=== PATIENT | male | born 1960 | race Two or more races ===

== ENCOUNTER 2017-05-19 18:26 | Emergency (ER) | payer SELFPAY ==
[~2017-05-19] VITALS: Ht 175.3 cm; Wt 111.0 kg
[2017-05-19 19:39] LABS: BASOPHILS % 0.8 % (0.0-2.0); EOSINOPHILS % 1.9 % (0.0-5.0); HEMATOCRIT. 45.5 % (42.0-52.0); HEMOGLOBIN. 15.5 g/dL (14.0-18.0); LYMPHOCYTES % 28.6 % (20.0-50.0); MEAN CORPUSCULAR VOLUME 88.2 fL (80.0-94.0); MEAN PLATELET VOLUME 7.7 fl (7.4-10.4); MONOCYTES % 8.5 % (2.0-8.0); NEUTROPHILS % 60.2 % (40.0-76.0); PLATELET 321 x1000/uL (130-400); RED BLOOD CELL COUNT 5.16 mill/uL (4.7-6.1); RED CELL DISTRIBUTION WIDTH 14.2 % (11.6-14.6)
[2017-05-19 19:48] LABS: PROTHROMBIN TIME 10.9 sec
[2017-05-19 19:52] LABS: CARBON DIOXIDE 27 mEq/L (21-32); CHLORIDE 109 mEq/L (98-107)
[2017-05-19] MEDS ORDERED: CLONIDINE 0.1MG TABLET PO ONE (20:45)
[2017-05-19] MEDS ORDERED: LABETALOL 5MG/ML SYR 20 MG/4 ML SYRINGE IV ONE (21:45)
[2017-05-20 00:27] VITALS: BP 180/110
== END 2017-05-20 00:30 | disposition home or self-care (01) ==
LOC: ER 18:41
DX: I10 Essential (primary) hypertension (principal); N28.9 Disorder of kidney and ureter, unspecified; Z91.14 Patient's other noncompliance with medication regimen
CPT/HCPCS: 36415; 70450; 80053; 85025; 85610; 93005; 96374; 99285; J3490; Z7610

== ENCOUNTER 2019-01-08 09:15 | Inpatient (IN) | payer OTHER, MEDICAID ==
[~2019-01-08] VITALS: Ht 175.3 cm; Wt 111.6 kg
[2019-01-08] MEDS ORDERED: LABETALOL 5MG/ML SYR 20 MG/4 ML SYRINGE IV ONE (10:15)
[2019-01-08 10:36] LABS: HEMATOCRIT. 47.6 % (42.0-52.0); HEMOGLOBIN. 16.2 g/dL (14.0-18.0); MEAN CORPUSCULAR HEMOGLOBIN 30.5 pg (28.0-32.0); MEAN CORPUSCULAR VOLUME 89.7 fL (80.0-94.0); MEAN PLATELET VOLUME 8.5 fl (7.4-10.4); PLATELET 248 x1000/uL (130-400); RED BLOOD CELL COUNT 5.31 mill/uL (4.7-6.1)
[2019-01-08 10:44] LABS: CHLORIDE 108 mEq/L (98-107)
[2019-01-08] MEDS ORDERED: LABETALOL HCL 20MG/4ML CARPUJECT IV ONE (10:45)
[2019-01-08] MEDS ORDERED: ASPIRIN 325MG EC TABLET PO ONE (11:15)
[2019-01-08 11:24] LABS: PLATELET ESTIMATE NORMAL
[2019-01-08] MEDS ORDERED: DIPHENHYDRAMINE 50MG/ML VIAL IV PRN (12:00)
[2019-01-08] MEDS ORDERED: IPRATROPIUM/ALBUTEROL 0.5-3(2.5)MG/3ML NEB INH PRN (12:00)
[2019-01-08] MEDS ORDERED: ACETAMINOPHEN 325MG TABLET PO PRN (12:00)
[2019-01-08] MEDS ORDERED: ONDANSETRON HCL 4MG/2ML INJ IV PRN (12:00)
[2019-01-08] MEDS ORDERED: MAGNESIUM/ALUMINUM HYDROXIDE/SIMETHICONE 30ML UDC PO PRN (12:00)
[2019-01-08] MEDS ORDERED: NA PHOS,M-B/NA PHOS,DI-BA ENEMA 118ML PR PRN (12:00)
[2019-01-08] MEDS ORDERED: DOCUSATE SODIUM 100MG CAPSULE PO PRN (12:00)
[2019-01-08] MEDS ORDERED: HYDROCODONE/ACETAMINOPHEN 5/325MG TABLET PO PRN (12:00)
[2019-01-08] MEDS ORDERED: MORPHINE SULFATE 4 MG/ML CPJ (NOT FOR IM USE) IV PRN (12:00)
[2019-01-08] MEDS ORDERED: LISINOPRIL 5MG TABLET PO NR (14:30)
[2019-01-08] MEDS ORDERED: CLONIDINE 0.1MG TABLET PO NR (14:30)
[2019-01-08] MEDS ORDERED: ENOXAPARIN 30MG/0.3ML SYR SUBCUT NR (14:30)
[2019-01-08 15:03] LABS: CHLORIDE 106 mEq/L (98-107)
[2019-01-08] MEDS: CLONIDINE 0.1MG TABLET PO PRN (16:00)
[2019-01-08 19:30] VITALS: BP 170/100
[2019-01-08 20:00] VITALS: BP 175/114
[2019-01-08] MEDS ORDERED: HYDROXYZINE 25MG TABLET PO PRN (20:45)
[2019-01-08] MEDS ORDERED: HYDRALAZINE 20MG/ML VIAL IV PRN (20:45)
[2019-01-08] MEDS: ENOXAPARIN 30MG/0.3ML SYR SUBCUT SCH (21:07)
[2019-01-08] MEDS: NITROGLYCERIN OINT 1GM/INCH UDPKT TD SCH (21:07)
[2019-01-08] MEDS: CLONIDINE 0.1MG TABLET PO SCH (21:07)
[2019-01-09] VITALS: BP 130/76
[2019-01-09 04:00] VITALS: BP 125/79
[2019-01-09] MEDS: NITROGLYCERIN OINT 1GM/INCH UDPKT TD SCH ×3 (05:59→21:08)
[2019-01-09] MEDS: CLONIDINE 0.1MG TABLET PO SCH ×3 (05:59→21:07)
[2019-01-09 06:18] LABS: HEMATOCRIT. 43.9 % (42.0-52.0); HEMOGLOBIN. 14.7 g/dL (14.0-18.0); MEAN CORPUSCULAR HEMOGLOBIN 30.2 pg (28.0-32.0); MEAN CORPUSCULAR VOLUME 90.4 fL (80.0-94.0); MEAN PLATELET VOLUME 8.5 fl (7.4-10.4); PLATELET 253 x1000/uL (130-400); RED BLOOD CELL COUNT 4.86 mill/uL (4.7-6.1); RED CELL DISTRIBUTION WIDTH 14.5 % (11.6-14.6)
[2019-01-09 06:23] LABS: CHLORIDE 107 mEq/L (98-107)
[2019-01-09 06:38] LABS: LDL CHOLESTEROL 146 mg/dL (5-100)
[2019-01-09 06:40] LABS: HDL CHOLESTEROL 31 mg/dL (40-59); T4 FREE 0.93 ng/dL (0.76-1.46)
[2019-01-09 08:00] VITALS: BP 161/95
[2019-01-09] MEDS ORDERED: REGADENOSON 0.4 MG/5 ML IV ONE (10:00)
[2019-01-09] MEDS: ASPIRIN 81MG EC TABLET PO SCH (10:01)
[2019-01-09] MEDS: LISINOPRIL 5MG TABLET PO SCH (10:01)
[2019-01-09] MEDS: ENOXAPARIN 30MG/0.3ML SYR SUBCUT SCH ×2 (10:02→21:08)
[2019-01-09] MEDS: GUAIFENESIN 200MG/10ML SUGAR FREE UDC PO PRN (10:39)
[2019-01-09 12:00] VITALS: BP 131/84
[2019-01-09 16:16] VITALS: BP 144/92
[2019-01-09 16:55] LABS: PLATELET ESTIMATE NORMAL
[2019-01-09 20:00] VITALS: BP 142/89
[2019-01-09] MEDS: LORAZEPAM 2MG/ML CPJ IV PRN (21:17)
[2019-01-10 00:30] VITALS: BP 125/75
[2019-01-10 04:00] VITALS: BP 129/80
[2019-01-10 08:00] VITALS: BP 165/109
[2019-01-10] MEDS: LISINOPRIL 5MG TABLET PO SCH (08:34)
[2019-01-10] MEDS: CLONIDINE 0.1MG TABLET PO SCH ×3 (08:34→22:31)
[2019-01-10] MEDS: ASPIRIN 81MG EC TABLET PO SCH (08:35)
[2019-01-10] MEDS: ENOXAPARIN 30MG/0.3ML SYR SUBCUT SCH ×2 (08:39→22:32)
[2019-01-10 12:15] VITALS: BP 160/96
[2019-01-10] MEDS: NITROGLYCERIN OINT 1GM/INCH UDPKT TD SCH ×2 (14:12→22:00)
[2019-01-10] MEDS: GUAIFENESIN 200MG/10ML SUGAR FREE UDC PO PRN (14:16)
[2019-01-10 16:00] VITALS: BP 156/96
[2019-01-10 20:00] VITALS: BP 168/98
[2019-01-10] MEDS: LORAZEPAM 2MG/ML CPJ IV PRN (22:32)
[2019-01-11 00:13] VITALS: BP 145/99
[2019-01-11 04:00] VITALS: BP 137/84
[2019-01-11 04:30] VITALS: BP 130/82
[2019-01-11] MEDS: NITROGLYCERIN OINT 1GM/INCH UDPKT TD SCH ×2 (06:00→13:39)
[2019-01-11] MEDS: CLONIDINE 0.1MG TABLET PO SCH ×2 (06:26→13:39)
[2019-01-11 08:00] VITALS: BP 158/86
[2019-01-11] MEDS: CLONIDINE 0.1MG TABLET PO PRN (08:52)
[2019-01-11] MEDS: LISINOPRIL 5MG TABLET PO SCH (08:53)
[2019-01-11] MEDS ORDERED: REGADENOSON 0.4 MG/5 ML IV ONE (09:40)
[2019-01-11] MEDS: ASPIRIN 81MG EC TABLET PO SCH (11:45)
[2019-01-11] MEDS: ENOXAPARIN 30MG/0.3ML SYR SUBCUT SCH (11:52)
[2019-01-11 12:00] VITALS: BP 146/82
[2019-01-11 13:48] VITALS: BP 148/88
== END 2019-01-11 14:55 | disposition home or self-care (01) | DRG 190 ==
LOC: ER 09:15 → 7WST 11:34 → EDBEDREQ 11:40 → ENRESERV 17:42
PROVIDERS: ADMIT Internal Medicine; ATTEND Internal Medicine
DX: I21.4 Non-ST elevation (NSTEMI) myocardial infarction (principal); I11.0 Hypertensive heart disease with heart failure; I50.9 Heart failure, unspecified; E66.09 Other obesity due to excess calories; I25.10 Atherosclerotic heart disease of native coronary artery without angina pectoris; N28.9 Disorder of kidney and ureter, unspecified; R63.4 Abnormal weight loss; G47.33 Obstructive sleep apnea (adult) (pediatric); E78.5 Hyperlipidemia, unspecified; I25.2 Old myocardial infarction; Z68.36 Body mass index [BMI] 36.0-36.9, adult
CPT/HCPCS: 36415; 71045; 78452; 80048; 80061; 83880; 84439; 84443; 84484; 93005; 93306; 96372; 96374; 96375; 99285; A9500; C1893; J1650; J2060; J2785; J3490

== ENCOUNTER 2019-01-21 05:33 | Inpatient (IN) | payer OTHER, MEDICAID ==
[~2019-01-21] VITALS: Ht 175.3 cm; Wt 116.6 kg
[2019-01-21 06:46] LABS: CHLORIDE 105 mEq/L (98-107)
[2019-01-21 06:55] LABS: BASOPHILS % 0.7 % (0.0-2.0); EOSINOPHILS % 1.2 % (0.0-5.0); HEMATOCRIT. 43.2 % (42.0-52.0); HEMOGLOBIN. 14.8 g/dL (14.0-18.0); LYMPHOCYTES % 18.5 % (20.0-50.0); MEAN CORPUSCULAR HEMOGLOBIN 30.7 pg (28.0-32.0); MEAN CORPUSCULAR VOLUME 89.7 fL (80.0-94.0); MEAN PLATELET VOLUME 8.4 fl (7.4-10.4); MONOCYTES % 7.2 % (2.0-8.0); NEUTROPHILS % 72.4 % (40.0-76.0); PLATELET 333 x1000/uL (130-400); RED BLOOD CELL COUNT 4.81 mill/uL (4.7-6.1); RED CELL DISTRIBUTION WIDTH 13.7 % (11.6-14.6)
[2019-01-21] MEDS ORDERED: ENALAPRIL 2.5MG/2ML VIAL 2ML IV ONE (08:00)
[2019-01-21] MEDS ORDERED: FUROSEMIDE 40MG/4ML VIAL IVP ONE (08:00)
[2019-01-21] MEDS ORDERED: SODIUM CHLORIDE 0.45% 1,000 ML IV ONE (09:15)
[2019-01-21] MEDS ORDERED: IODIXANOL 320MG/ML 100 ML BOTTLE IV ONE (09:34)
[2019-01-21] MEDS ORDERED: LIDOCAINE HCL 1% 20ML VIAL (Pyxis) INJ ONE (09:34)
[2019-01-21] MEDS ORDERED: GUAIFENESIN 200MG/10ML SUGAR FREE UDC PO PRN (10:00)
[2019-01-21] MEDS ORDERED: IPRATROPIUM/ALBUTEROL 0.5-3(2.5)MG/3ML NEB INH PRN (10:00)
[2019-01-21] MEDS ORDERED: ONDANSETRON HCL 4MG/2ML INJ IV PRN (10:00)
[2019-01-21] MEDS ORDERED: NA PHOS,M-B/NA PHOS,DI-BA ENEMA 118ML PR PRN (10:00)
[2019-01-21] MEDS ORDERED: DOCUSATE SODIUM 100MG CAPSULE PO PRN (10:00)
[2019-01-21] MEDS ORDERED: DIPHENHYDRAMINE 50MG/ML VIAL IV PRN (10:00)
[2019-01-21] MEDS ORDERED: MORPHINE SULFATE 4 MG/ML CPJ (NOT FOR IM USE) IV PRN (10:00)
[2019-01-21] MEDS ORDERED: LORAZEPAM 2MG/ML CPJ IV PRN (10:00)
[2019-01-21] MEDS ORDERED: ACETAMINOPHEN 325MG TABLET PO PRN (10:00)
[2019-01-21] MEDS ORDERED: MAGNESIUM/ALUMINUM HYDROXIDE/SIMETHICONE 30ML UDC PO PRN (10:00)
[2019-01-21] MEDS ORDERED: FENTANYL CITRATE/PF 50MCG/ML 2ML VIAL ONE (10:40)
[2019-01-21] MEDS ORDERED: MIDAZOLAM HCL 2 MG/2 ML VIAL ONE (10:40)
[2019-01-21] MEDS ORDERED: IOHEXOL-300 100 ML BOTTLE ONE (10:57)
[2019-01-21] MEDS ORDERED: ASPIRIN 325MG TABLET ONE (11:07)
[2019-01-21] MEDS ORDERED: CLOPIDOGREL 75MG TABLET ONE (11:07)
[2019-01-21 12:34] VITALS: BP 183/117
[2019-01-21 14:00] VITALS: BP 151/105
[2019-01-21] MEDS: HYDROCODONE/ACETAMINOPHEN 5/325MG TABLET PO PRN ×2 (14:29→20:07)
[2019-01-21] MEDS ORDERED: HEPARIN SODIUM 1,000 UNIT/1ML VIAL IV ONE (14:36)
[2019-01-21] MEDS ORDERED: NITROGLYCERIN 50MCG/ML 10ML VIAL (CATH LAB) IV ONE (14:36)
[2019-01-21] MEDS ORDERED: NICARDIPINE 100MCG/ML 10ML VIAL (CATH LAB) IV ONE (14:36)
[2019-01-21] MEDS: ENOXAPARIN 30MG/0.3ML SYR SUBCUT SCH (15:00)
[2019-01-21] MEDS: CLONIDINE 0.1MG TABLET PO PRN (15:18)
[2019-01-21 16:00] VITALS: BP 163/100
[2019-01-21 17:06] LABS: CHLORIDE 107 mEq/L (98-107)
[2019-01-21 18:00] VITALS: BP 150/101
[2019-01-21] MEDS: NITROGLYCERIN OINT 1GM/INCH UDPKT TD SCH (18:00)
[2019-01-21 20:00] VITALS: BP 157/88
[2019-01-21] MEDS ORDERED: METO25TA6 PO (20:03)
[2019-01-21] MEDS ORDERED: FURO20TA4 PO (20:03)
[2019-01-21] MEDS ORDERED: ISOS60TA4 PO (20:03)
[2019-01-21] MEDS ORDERED: LISI-604 PO (20:03)
[2019-01-21] MEDS ORDERED: CLON0.1T PO (20:03)
[2019-01-21] MEDS: METOPROLOL TARTRATE 25MG TABLET PO SCH (20:41)
[2019-01-21] MEDS ORDERED: ZOLPIDEM TARTRATE 5MG TABLET PO PRN (21:00)
[2019-01-21 22:00] VITALS: BP 157/99
[2019-01-22] VITALS (9 sets, daily range): BP systolic 142–172; BP diastolic 87–102
[2019-01-22] MEDS: NITROGLYCERIN OINT 1GM/INCH UDPKT TD SCH ×2 (00:57→09:26)
[2019-01-22] MEDS: CLONIDINE 0.1MG TABLET PO PRN ×2 (01:02→05:39)
[2019-01-22] MEDS: ENOXAPARIN 30MG/0.3ML SYR SUBCUT SCH (05:50)
[2019-01-22] MEDS: METOPROLOL TARTRATE 25MG TABLET PO SCH (07:45)
[2019-01-22 08:59] LABS: BASOPHILS % 0.7 % (0.0-2.0); EOSINOPHILS % 2.3 % (0.0-5.0); HEMATOCRIT. 43.7 % (42.0-52.0); HEMOGLOBIN. 14.6 g/dL (14.0-18.0); LYMPHOCYTES % 19.4 % (20.0-50.0); MEAN CORPUSCULAR HEMOGLOBIN 30.2 pg (28.0-32.0); MEAN CORPUSCULAR VOLUME 90.6 fL (80.0-94.0); MEAN PLATELET VOLUME 8.7 fl (7.4-10.4); MONOCYTES % 8.5 % (2.0-8.0); NEUTROPHILS % 69.1 % (40.0-76.0); PLATELET 305 x1000/uL (130-400); RED BLOOD CELL COUNT 4.83 mill/uL (4.7-6.1)
[2019-01-22] MEDS ORDERED: ASPIRIN 81MG EC TABLET PO SCH ×2 (09:00)
[2019-01-22] MEDS ORDERED: CLOPIDOGREL 75MG TABLET PO SCH (09:00)
[2019-01-22 09:06] LABS: CHLORIDE 108 mEq/L (98-107)
[2019-01-22 09:15] LABS: T4 FREE 1.05 ng/dL (0.76-1.46)
[2019-01-22 09:21] LABS: LDL CHOLESTEROL 77 mg/dL (5-100)
[2019-01-22 09:22] LABS: HDL CHOLESTEROL 36 mg/dL (40-59)
== END 2019-01-22 12:20 | disposition home or self-care (01) | DRG 246 ==
LOC: ER 05:33 → ORIP 07:57 → EDBEDREQ 08:04 → 3WST 14:16
PROVIDERS: ADMIT Internal Medicine; ATTEND Internal Medicine
PROC: 4A023N7 Measurement of Cardiac Sampling and Pressure, Left Heart, Percutaneous Approach (ICD-10-PCS; principal; 2019-01-21)
PROC: 027035Z Dilation of Coronary Artery, One Artery with Two Drug-eluting Intraluminal Devices, Percutaneous Approach (ICD-10-PCS; 2019-01-21)
PROC: B2111ZZ Fluoroscopy of Multiple Coronary Arteries using Low Osmolar Contrast (ICD-10-PCS; 2019-01-21)
PROC: B2151ZZ Fluoroscopy of Left Heart using Low Osmolar Contrast (ICD-10-PCS; 2019-01-21)
DX: I21.4 Non-ST elevation (NSTEMI) myocardial infarction (principal); I50.21 Acute systolic (congestive) heart failure; I25.110 Atherosclerotic heart disease of native coronary artery with unstable angina pectoris; E66.09 Other obesity due to excess calories; E78.00 Pure hypercholesterolemia, unspecified; E78.5 Hyperlipidemia, unspecified; I25.2 Old myocardial infarction; N28.9 Disorder of kidney and ureter, unspecified; Z79.02 Long term (current) use of antithrombotics/antiplatelets; Z79.82 Long term (current) use of aspirin; Z79.899 Other long term (current) drug therapy; G47.33 Obstructive sleep apnea (adult) (pediatric); Z68.38 Body mass index [BMI] 38.0-38.9, adult; I11.0 Hypertensive heart disease with heart failure
CPT/HCPCS: 36415; 71045; 80048; 80061; 83880; 84439; 84443; 84484; 85347; 92928; 93005; 93458; 96372; 99285; C1769; C1874; C1887; C1893; J1644; J1650; J2250; J3010; J3490; Q9967